=== PATIENT | female | born 1970 | race Caucasian/White ===

== ENCOUNTER 2020-07-29 07:22 | Day surgery (SDC) | payer OTHER, SELFPAY ==
--- NOTE | 2020-07-09 12:36 | HP.PCM_ITS ---
History and Physical Date of Admission: 07/29/20 HPI: The patient is a 50 year old female presenting for pre-operative visit. She is scheduled for?LAVH?with bilateral salpingectomy, for?menorrhagia and uterine fibroids on?07/29/2020. ??Procedure discussed along with risks, benefits and complications. ?Other alternatives discussed for management. Consent form signed??Yes.? PAST MEDICAL HISTORY PAST MEDICAL HISTORY Diagnosis Date ? Psoriasis ? ? ? PAST SURGICAL HISTORY PAST SURGICAL HISTORY Procedure Laterality Date ? DENTAL IMPLANT ? CURRENT MEDICATIONS No current outpatient medications on file. ? No current facility-administered medications for this visit.? ? ALLERGIES:?Patient has no known allergies. ? PERSONAL HISTORY:? SOCIAL HISTORY Social History ? Tobacco Use ? Smoking status: Current Every Day Smoker ? ? Types: Cigarettes ? ? Start date: 11/03/2002 ? Smokeless tobacco: Never Used Substance Use Topics ? Alcohol use: Yes ? ? Comment: rare ? Drug use: Never ? FAMILY HISTORY:? FAMILY HISTORY No family history on file. ? REVIEW OF SYMPTOMS: GENERAL: denies fevers or chills ENDOCRINOLOGY: has not been on steroids Cardiology : denies palpitations or chest pain Respiratory: denies SOB or cough Hematology: denies history of prolonged bleeding or easy bruising or VTE Allergy: Denies history of personal or family history of allergy to anesthesia ? ? PHYSICAL EXAMINATION: ? VITALS:?Blood pressure 112/58, pulse 84, resp. rate 12, height 5' 4 (1.626 m), weight 169 lb (76.7 kg), last menstrual period 06/12/2020. ? GENERAL:??The patient is well nourished, well hydrated in no acute distress. ?, The patient is oriented to time, place, and person. NECK:?Supple. No lynphadenopathy, normal thyroid, no thyromegaly. LUNGS:?Clear to auscultation bilaterally. no wheezes, rhonchi or rales HEART:?Regular rate and rhythm, Normal heart sounds and No murmurs or gallops PELVIC US ON 03/09/2020 ? uterus normal size and contour. There are 2 intramural fibroids present the largest measuring 4.2 cm in greatest dimension. Endometrium appears normal without ?any lesions. Endometrial thickness 4.5 mm. bilateral ovaries were visualized and appear normal No free fluid in the cul-de-sac Recommendations Follow up as clinically indicated. Menstrual History LMP on 03/08/2020 Method ====== Transvaginal, 3D ultrasound examination. Uterus ====== Uterus: Visualized Uterus position: anteverted Uterus long 94 mm Uterus ap 67 mm Uterus tr 81 mm Uterus Vol 269.0 cm? Endometrial thickness, total 4.5 mm Uterine fibroid D1 42 mm Uterine fibroid D2 34 mm Uterine fibroid D3 34 mm Uterine fibroid mean 36.7 mm Uterine fibroid vol 25.422 cm? Uterine fibroids findings: Posterior, mid, left Uterine fibroid D1 29 mm Uterine fibroid D2 24 mm Uterine fibroid D3 21 mm Uterine fibroid mean 24.7 mm Uterine fibroid vol 7.653 cm? Uterine fibroids findings: Posterior, fundal, right Right Ovary ========= Rt ovary: Visualized Rt ovary D1 22 mm Rt ovary D2 19 mm Rt ovary D3 15 mm Rt ovary Vol 3.3 cm? Left Ovary ======== Lt ovary: Visualized Lt ovary D1 26 mm Lt ovary D2 27 mm Lt ovary D3 18 mm Lt ovary Vol 6.5 cm? Cul de Sac ========= ? IMPRESSION:?menorrhagia, uterine fibroid ? PLAN:???The risks/benefits/alternatives and personal involved for the planned?LAVH, bilateral salpingectomy?were reviewed with the patient. Her questions were answered to her satisfaction and she desires to proceed. ?Consent was signed. ?I reviewed with her postop instructions and expectations. Plans d/c home same day, given prescriptions in the office ? I have reviewed and updated past medical and surgical history, medications and allergies. ? The patient was offered?a?surgery/procedure at a [facility]. The surgeon/proceduralist and patient have discussed in detail the risk of exposure to and/or potential harm posed by the COVID-19 virus with having a surgery/procedure at this time versus the risk of??delaying the surgery/procedure. It is not possible to know either the risk of delaying the surgery or procedure or chance of getting an infection with perfect accuracy, but a joint decision was made between the patient and the surgeon/proceduralist ?to proceed at this time with the scheduled surgery/procedure as indicated on the consent form.
--- NOTE | 2020-07-28 10:38 | EKG12_ITS ---
Test Reason : PRE OP Blood Pressure : / mmHG Vent. Rate : 084 BPM Atrial Rate : 084 BPM P-R Int : 128 ms QRS Dur : 072 ms QT Int : 366 ms P-R-T Axes : 066 068 048 degrees QTc Int : 432 ms Normal sinus rhythm Normal ECG No previous ECGs available Confirmed by HUGO LAWRENCE, MELONIE ([id number]), editor department BELA JEFFERSON ([id number]) on 07/29/2020 11:25:17 AM Referred By: Natalia Burrell Confirmed By:MELONIE ARIAS MD
[2020-07-28 11:01] LABS: Hematocrit 43.7 % (37-47); Hemoglobin 14.2 g/dL (12.0-15.0); Mean Corp Hgb Conc 32.5 g/dL (32-36); Mean Corpuscular Hgb 28.9 pg (27.0-32.0); Mean Corpuscular Volume 88.8 fL (81-99); Mean Platelet Vol. 9.9 fl (6.2-12.0); Platelet Count 294 K/mm3 (150-450); RBC Distribution Width CV 14.5 % (11.6-14.6); RBC Distribution Width SD 47.2 fl (35.1-43.9); Red Blood Count 4.92 M/mm3 (4.2-5.4); White Blood Count 9.2 K/mm3 (4.4-11.0)
[2020-07-28 11:13] LABS: Prothrombin Time (Protime)PT. 12.7 SECONDS (11.7-14.9)
[2020-07-28 11:14] LABS: Partial Thromboplast Time 28.4 Seconds (24.1-36.2)
[2020-07-28 11:31] LABS: AST(SGOT) 13 U/L (15-37); Alanine Aminotransfer ALT/SGPT 23 U/L (13-56); Albumin, Serum 3.5 g/dL (3.2-5.0); Alkaline Phosphatase 93 U/L (45-117); Bilirubin, Direct 0.12 mg/dL (0.00-0.30); Globulin 3.8 g/dL (2.2-4.2); Protein, Total 7.3 g/dL (6.4-8.2)
[2020-07-29] VITALS (11 sets, daily range): BP systolic 88–107; BP diastolic 50–67; PULSE 63–89; RESP 14–16; TEMP 35.8–36.9; O2SAT 96–100; BMI 30.2
[2020-07-29 07:52] LABS: Internal QC Validated? YES +Cl - CLEAR BKGD; Pregnancy, Urine Negative Negative
[2020-07-29] MEDS: Phenazopyridine 95 MG Tablet 190 MG PO (08:08)
[2020-07-29] MEDS: Acetaminophen 500 MG Tablet 1000 MG PO ×2 (08:09→14:35)
[2020-07-29] MEDS: Celecoxib 200 MG Capsule 400 MG PO (08:09)
[2020-07-29] MEDS: Gabapentin 600 MG Tablet PO (08:10)
[2020-07-29] MEDS: Scopolamine 1mg/72hr Patch 1 PATCH TD (08:10)
[2020-07-29] MEDS: Enoxaparin 40 MG/0.4 ML Syringe SC (08:11)
[2020-07-29] MEDS: Lactated Ringers 1,000 ML 40 ML IV ×2 (08:28→11:45)
[2020-07-29] MEDS: Cefazolin 2 GM in 0.9% Normal Saline 100 ML IV (09:23)
--- NOTE | 2020-07-29 09:30 | HYST_PTH ---
PATIENT: OPAL MCWILLIAMS LOC: [facility] [place] U#:[id number] AGE/SX: 50/F ROOM: RE07/29/[address]: Dr. Natalia Burrell MD : 1970 BED: DIS: 07/29/2020 SPEC #: [id number] RECD: 07/29/20 13:52 STATUS: BRANDI PAREKH #: [id number] MANNY: 07/29/20 09:[address]: Natalia Burrell DEPT: SURGICAL PATHOLOGY RECD BY: Sondra Shah ENTERED: 07/30/20 08:12 SP TYPE: HYSTERECT OTHR DR: Dr. Ryanne Silverio MD Tissues: Uterus, NOS Procedures: Surgery Specimen Level V HEADER OPERATION: ERAS, hysterectomy, LAVH, salpingectomy PRE-OP DIAGNOSIS: Menorrhagia, uterine fibroid TISSUE SUBMITTED: Uterus, cervix and bilateral fallopian tubes MICROSCOPIC DIAGNOSIS Uterus, cervix, bilateral fallopian tubes, vaginal hysterectomy and bilateral salpingectomy: Cervix - chronic cystic cervicitis and squamous metaplasia. Endometrium - proliferative endometrium. Myometrium - intramural leiomyomas (largest measuring 3 cm in greatest dimension). - Adenomyosis. Bilateral fallopian tubes - no pathologic diagnosis. 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 See comment. SJ:rg 08/02/20 COMMENT The cystadenofibroma shows ovarian tissue underlying the epithelial lining may represent parovarian cyst. Case has been reviewed in consultation with Dr. Mcdowell who concurs with the above diagnosis. IDC:AM MICROSCOPIC DESCRIPTION Slides are reviewed. GROSS DESCRIPTION Received in fixative is one container labeled with the patient's name and designated uterus. The specimen consists of a uterus with attached cervix, attached right fallopian tube and detached left fallopian tube. The uterus with cervix measures 8.5 x 7 x 5 cm and weighs 210 gm. The ectocervix is grossly unremarkable. The endocervical canal measures 3.5 cm in length and is grossly unremarkable. The elongated endometrial cavity measures 4.5 x 2.5 cm. The reddish-lamb endometrium measures up to 0.2 cm in thickness. The myometrium measures 2.7 cm in average thickness and contains small spherical rubbery nodules ranging in size from 0.4 to 3 cm in greatest dimension. The right fallopian tube measures 6 cm in length and 0.7 cm in average diameter. A normal fimbriated end is present. The left fallopian tube measures 8.5 cm in length and 0.6 cm in average diameter. The soft tissue adjacent to the fimbriated end contains a smooth glistening cyst containing yellowish-lamb fluid. The fimbrial end appears grossly unremarkable. [employer] sections are submitted in 11 cassettes as follows: 1 - anterior cervix, 2 - posterior cervix, 3 & 4 - anterior uterine wall, 5 & 6 - posterior uterine wall, 7 - largest myometrial mass, 8 - smaller myometrial masses, 9 - right fallopian tube, 10 & 11 - left fallopian tube with paratubal cyst. / AM:beatris 07/30/20 TC:1 CPT: 59607
[2020-07-29] MEDS: dexAMETHasone 10 MG/ML Vial 8 MG IV (09:50)
[2020-07-29 09:55] LABS: Bedside Glucose 71 mg/dL (70-110)
[2020-07-29] MEDS: Bupivacaine Mpf 0.5% 30 ML VIAL (09:58)
[2020-07-29] MEDS: Lidocaine 1%/Epi 1:200 (30ml) 30 ML AMPUL (10:20)
--- NOTE | 2020-07-29 11:31 | PCM.DC.AHY ---
Discharge Diet: No Restrictions Discharge Activity: Return to Normal Activity, May Not Drive - while taking narcotic pain medications., May Shower May shower in (days): 1 May resume sexual activity in: 6-8 weeks Call your doctor if your incision/area has: Continuous Slow Oozing, Sudden Increased Bleeding, Increased Pain/ Swelling, Increased Redness, Foul Smelling Discharge Call your doctor if you observe: Fever of 101 or Higher, Inability to urinate, Inability to have a bowel movement, Using more than one pad per hour Cleanse incision/area with: Soap & Water, - - your incisions have skin glue, it can get wet, leave it in place Allergies/Adverse Reactions: Allergies No Known Allergies Allergy (Verified 07/26/20 08:31) Medications to take at Discharge Docusate Sodium [Colace] 100 mg PO BID PRN PRN #30 cap 07/29/20 Ibuprofen [Motrin] 600 mg PO Q6H PRN #60 tab 07/29/20 Oxycodone HCl/Acetaminophen [Percocet 5-325] 1 tablet PO Q8 PRN 7 Days #20 tablet 07/29/20 The following prescriptions were given: Docusate Sodium [Colace] 100 mg PO BID PRN PRN #30 cap PRN Reason: Constipation Transmission Status: Pending to [id number] Ibuprofen [Motrin] 600 mg PO Q6H PRN #60 tab PRN Reason: Pain Transmission Status: Pending to [id number] Oxycodone HCl/Acetaminophen [Percocet 5-325] 1 tablet PO Q8 PRN 7 Days #20 tablet PRN Reason: Moderate-Severe pain Transmission Status: Received by [facility]/pharmacy #[id number] Primary Care Physician: Ryanne Silverio MD [Primary Care Provider] - Test Results: Test results from this visit will be discussed in further detail at your follow-up appointment, if applicable. Please Follow Up With: Natalia Burrell MD When: 1-2 and 6 weeks or as needed
--- NOTE | 2020-07-29 11:32 | PCM.OPRPT ---
Report of Operation Date of Procedure: 07/29/20 Pre-Operative Diagnosis: menorrhagia Post-Operative Diagnosis: same Surgery/Procedure Performed:: Laparoscopic-assisted vaginal hysterectomy with bilateral salpingectomy senior accounts payable clerk: Elizabeth Stark senior accounts payable clerk: Vick Mulligan [id number] Type of Anesthesia:: General Anesthesiologist: Harriet Royal Special Medications: none Specimen's removed: uterus, cervix, bilateral tubes Drains: none Estimated Blood Loss (mL): 300 Fluids Replaced: 900 cc Description of Procedure: The patient was taken to the operating room where she was prepped and draped in the dorsal lithotomy position. Her arms were tucked to the side and padded and her legs were placed in the yellowfin stirrups. Care was taken to ensure that she was placed in a neurologically safe and neutral position. A weighted speculum was placed in the vagina and the anterior lip of the cervix was grasped with a single-tooth tenaculum. The uterus sounded to 9 centimeters. The ZCloudBilt uterine manipulator was placed and secured. The Byers catheter was placed to straight drain. Attention was turned to the abdominal portion of the case. Before skin incisions were made they were infiltrated with 0.5% Marcaine solution for local anesthetic. A 5 mm intraumbilical incision was made and while tenting the anterior abdominal wall up with towel clamps a 5 mm blade less trocar and sleeve were advanced directly into the peritoneal cavity. Peritoneal placement was confirmed with the laparoscope the pneumoperitoneum was created, and the underlying abdominal contents were intact. The patient was placed in Trendelenburg and the above findings were noted. Right and left lateral 5 mm trochars were placed under direct visualization without difficulty. The antimesenteric portion of the tube was clamped sealed and transected serially on both sides with the LigaSure device. The round ligaments were clamped sealed and transected and a window was made in the peritoneum. The utero-ovarian ligaments were then clamped, sealed and transected with the LigaSure device and the pedicles were hemostatic The bladder flap was dissected down with the LigaSure device and blunt dissection and the uterine arteries were then skeletonized. The uterine arteries were clamped, sealed and transected on both sides with the LigaSure device. At this point the pedicles were all examined and found to be hemostatic. Attention was turned to the vaginal portion of the case. 1% lidocaine with dilute epinephrine solution was used to infiltrate the anterior vaginal epithelium over the cervix. An incision was made from 3 to 9:00 across the anterior vaginal epithelium and the vaginal epithelium was dissected back with blunt sharp dissection. The anterior colpotomy incision was made. The posterior colpotomy incision was made with sharp dissection. The peritoneum was tagged. The uterosacral ligaments were clamped, transected and suture-ligated. The lower portion of the cardinal ligament was clamped, transected and suture-ligated. 1 more bite was taken on each side of the broad ligament was clamped, transected and suture ligated and the uterus was brought through the colpotomy incisions. There was some bleeding on the right side near pedicle and a [id number] suture was placed in this. There is also brisk bleeding from the anterior vaginal cuff and a [id number] suture was placed around this. Hemostasis of the pedicles was then noted. A May's culdoplasty was performed with 2 oh yes suture. The suture was placed through the posterior vaginal cuff to the peritoneum reefed across the peritoneum to the uterosacral ligament on the right and then back across the uterosacral ligament on the left and back out through the midline. The vaginal cuff was then reapproximated with interrupted 0 Vicryl [id number] sutures and hemostasis was noted. The May suture was cinched down. Excellent hemostasis was noted the sutures were all cut and a sponge stick was placed in the vagina. The laparoscope was reinserted into the abdomen and the pneumoperitoneum was re-created. The pedicles were reexamined and found to be hemostatic. The vaginal cuff was hemostatic. Alex was placed over the peritoneal edges and no active bleeding was noted through the Alex. The right and left lateral ports were taken out and the sites were hemostatic. The pneumoperitoneum was released and even under low pressure there was no bleeding of any of the pedicles are vaginal cuff. The umbilical port was removed. The umbilical skin incisions were closed with Monocryl suture and skin glue by the student with me supervising. The vaginal instruments were removed by me and a vaginal sweep was completed by me. The surgery was performed by me with assistance other than the portions dictated as above. There were no qualified residents available for this procedure. All sponge lap and needle counts were correct and the patient was transferred to the recovery room in stable condition. Start time: 951 Stop Time: 1128 Grafts/Implants Used: none - Complications none - Admit VTE Documentation VTE Present on Admission: No VTE Mechan Device Prophylaxis: SCD's VTE Pharm Prophylaxis ordered?: No
[2020-07-29 15:42] LABS: Hematocrit 39.3 % (37-47); Hemoglobin 12.3 g/dL (12.0-15.0); Mean Corp Hgb Conc 31.3 g/dL (32-36); Mean Corpuscular Volume 89.3 fL (81-99); Mean Platelet Vol. 9.8 fl (6.2-12.0); Platelet Count 275 K/mm3 (150-450); RBC Distribution Width CV 14.5 % (11.6-14.6); RBC Distribution Width SD 47.6 fl (35.1-43.9)
== END 2020-07-29 16:37 | disposition home or self-care (01) ==
LOC: SDC 07:23 → AC 07:23
PROVIDERS: Anesthesiology; PCP Family Medicine; Referring Provider Obstetrics & Gynecology; Visit Provider Obstetrics & Gynecology
PROC: 0UT9FZZ Resection of Uterus, Via Natural or Artificial Opening With Percutaneous Endoscopic Assistance (ICD-10-PCS; CPT 58552; principal; 2020-07-29 09:05)
DX: D25.1 Intramural leiomyoma of uterus (principal); Z20.828 Contact with and (suspected) exposure to other viral communicable diseases; N72 Inflammatory disease of cervix uteri; N87.9 Dysplasia of cervix uteri, unspecified; N80.0 Endometriosis of uterus; N83.8 Other noninflammatory disorders of ovary, fallopian tube and broad ligament; L40.9 Psoriasis, unspecified; F17.210 Nicotine dependence, cigarettes, uncomplicated
CPT/HCPCS: 00944; 58552; 36415; 80076; 81025; 82962; 85027; 85610; 85730; 86850; 86900; 86901; 87426; 88307; 93005; C9803; J7120; J2405